=== PATIENT | male | born 2005 | race Two or more races ===

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

== ENCOUNTER 2024-03-05 20:21 | Emergency (ER) | payer OTHER ==
[~2024-03-05] VITALS: Ht 170.2 cm; Wt 70.0 kg
[~2024-03-05 20:21] MED LIST: CEPH500C PO; NAPR-746 PO
[2024-03-05] MEDS: KETOROLAC TROMETH 30 MG/ML 1ML VIAL IV ONE (21:15)
[2024-03-05] MEDS: fentaNYL CITRATE 100 MCG/2 ML VL IV ONE (21:20)
[2024-03-05 21:32] VITALS: O2SAT 98
[2024-03-05 23:30] VITALS: BP 118/67; PULSE 87; RESP 16; TEMP 98.4; O2SAT 98
[2024-03-05] MEDS ORDERED: CYCL1POW XX (23:53)
[2024-03-05] MEDS ORDERED: HYDR-4798 PO (23:53)
[2024-03-05] MEDS ORDERED: IBUP200T76 PO (23:53)
== END 2024-03-06 01:30 | disposition home or self-care (01) ==
LOC: ER 20:21 → EDBD 20:21 → ER 03-06 01:30
DX: S33.5XXA Sprain of ligaments of lumbar spine, initial encounter (principal); S13.4XXA Sprain of ligaments of cervical spine, initial encounter; S06.2X9A Diffuse traumatic brain injury with loss of consciousness of unspecified duration, initial encounter; Z79.899 Other long term (current) drug therapy; V80.010A Animal-rider injured by fall from or being thrown from horse in noncollision accident, initial encounter; Y93.52 Activity, horseback riding; Y92.89 Other specified places as the place of occurrence of the external cause; Y99.8 Other external cause status
CPT/HCPCS: 70450; 71260; 72125; 72128; 72131; 74177; 96374; 96375; 99285; J1885; J3010; Q9967